=== PATIENT | female | born 1980 | race Caucasian/White ===

== ENCOUNTER → 2019-11-15 | Outpatient (CLI) | payer BC ==
[2019-11-15 11:17] LABS: BASO % 0.2 % (0.0-1.0); EOS # 0.1 10*3/uL (0.0-0.4); EOS % 0.9 % (1.0-4.0); HEMATOCRIT 39.4 % (37.0-47.0); LYMPH # 3.3 10*3/uL (1.3-4.4); LYMPH % 20.7 % (27.0-41.0); MEAN CELL VOLUME 96.3 fl (81.0-99.0); MEAN CORPUSCULAR HGB 32.8 pg (27.0-31.0); MONO # 1.2 10*3/uL (0.1-1.0); MONO % 7.8 % (3.0-9.0); NEUT % 69.8 % (47.0-73.0); PLATELET COUNT AUTOMATED 191 10*3/uL (130-400); RED BLOOD COUNT 4.09 10*6/uL (4.10-5.10); RED CELL DISTRI WIDTH 17.1 % (0-14.5); WHITE BLOOD COUNT 15.8 10*3/uL (4.8-10.8)
[2019-11-15 11:29] LABS: BILIRUBIN NEGATIVE (NEGATIVE); BLOOD NEGATIVE (NEGATIVE); CLARITY SL CLOUDY (CLEAR); COLOR YELLOW (YELLOW); GLUCOSE NEGATIVE (NEGATIVE); KETONE NEGATIVE (NEGATIVE); LEUKO ESTERASE NEGATIVE (NEGATIVE); MUCOUS TRACE; NITRITE NEGATIVE (NEGATIVE); PH 6.5 (5.0-9.0); RBC 0-2 rbc/hpf (0-2); SPECIFIC GRAVITY 1.015 (1.005-1.030); UROBILINOGEN 0.2 E.U./dl (0.2-1.0); WBC 0-2 wbc/hpf (0-5)
[2019-11-15 11:48] LABS: ALBUMIN 3.5 gm/dl (3.1-4.5); BUN 11 mg/dl (7-24); CHLORIDE 105 mmol/L (98-107); POTASSIUM 3.6 mmol/L (3.5-5.1); SGOT/AST 70 IU/L (3-35); SGPT/ALT 97 U/L (12-78); SODIUM 137 mmol/L (136-145); TOTAL PROTEIN 7.5 gm/dL (6.4-8.2); TRIGLYCERIDES 204 mg/dl (<150); VLDL CHOLESTEROL 41 mg/dL (6-40)
[2019-11-15 11:55] LABS: ALKALINE PHOSPHATASE 83 U/L (45-117); CHOLESTEROL 260 mg/dL (<200); CREATININE 0.88 mg/dL (0.55-1.02); HDL CHOLESTEROL 68 mg/dl (40-60); LDL CHOLESTEROL 151 mg/dL (9-159)
== END | disposition home or self-care (01) ==
LOC: LAB 10:36
PROVIDERS: Family Medicine
DX: I10 Essential (primary) hypertension (principal); F10.10 Alcohol abuse, uncomplicated

== ENCOUNTER 2020-03-11 10:53 | Emergency (ER) | payer BC ==
[~2020-03-11] VITALS: Ht 162.6 cm; Wt 77.1 kg
[2020-03-11 11:39] LABS: BASO % 0.4 % (0.0-1.0); EOS # 0.1 10*3/uL (0.0-0.4); EOS % 1.3 % (1.0-4.0); HEMATOCRIT 38.6 % (37.0-47.0); LYMPH # 1.1 10*3/uL (1.3-4.4); MEAN CELL VOLUME 91.9 fl (81.0-99.0); MEAN CORPUSCULAR HGB 29.3 pg (27.0-31.0); MEAN CORPUSCULAR HGB CONC 31.9 g/dl (33.0-37.0); MEAN PLATELET VOLUME 10.3 fl (9.6-12.3); MONO # 0.4 10*3/uL (0.1-1.0); MONO % 7.6 % (3.0-9.0); NEUT # 3.8 10*3/uL (2.3-7.9); NEUT % 70.3 % (47.0-73.0); PLATELET COUNT AUTOMATED 216 10*3/uL (130-400); WHITE BLOOD COUNT 5.4 10*3/uL (4.8-10.8)
[2020-03-11 11:55] LABS: ALBUMIN 3.4 gm/dl (3.1-4.5); ALKALINE PHOSPHATASE 113 U/L (45-117); BUN 5 mg/dl (7-24); CHLORIDE 107 mmol/L (98-107); CREATININE 0.99 mg/dL (0.55-1.02); POTASSIUM 3.3 mmol/L (3.5-5.1); SGOT/AST 44 IU/L (3-35); SGPT/ALT 32 U/L (12-78); SODIUM 141 mmol/L (136-145); TOTAL PROTEIN 7.4 gm/dL (6.4-8.2)
[2020-03-11 13:38] LABS: BILIRUBIN Negative (Negative); BLOOD Negative (Negative); CLARITY Clear (Clear); COLOR Yellow (Yellow); GLUCOSE Negative (Negative); KETONE Negative (Negative); LEUKO ESTERASE 1+ (Negative); NITRITE Negative (Negative); PH 6.5 (4.5-8.0); SPECIFIC GRAVITY 1.025 (1.001-1.030)
[2020-03-11 13:46] LABS: MUCOUS TRACE
[2020-03-11] MEDS ORDERED: SEPTDS PO (14:41)
[2020-03-12] MEDS ORDERED: AMLODIPINE BESY10 MG PO (16:51)
== END 2020-03-11 14:45 | disposition home or self-care (01) ==
LOC: ED 10:53
PROVIDERS: Emergency Medicine
DX: N39.0 Urinary tract infection, site not specified (principal); R20.2 Paresthesia of skin; R20.0 Anesthesia of skin

== ENCOUNTER 2020-03-12 10:37 | Observation (INO) | payer BC ==
[~2020-03-12] VITALS: Ht 162.5 cm; Wt 73.7 kg
[~2020-03-12 10:37] MED LIST: SEPTDS PO
[2020-03-12 10:44] VITALS: BP 184/76
[2020-03-12 10:56] LABS: BASO % 0.3 % (0.0-1.0); EOS # 0.1 10*3/uL (0.0-0.4); EOS % 1.9 % (1.0-4.0); HEMATOCRIT 39.8 % (37.0-47.0); LYMPH # 1.5 10*3/uL (1.3-4.4); LYMPH % 23.1 % (27.0-41.0); MEAN CELL VOLUME 89.8 fl (81.0-99.0); MEAN CORPUSCULAR HGB 28.9 pg (27.0-31.0); MEAN CORPUSCULAR HGB CONC 32.2 g/dl (33.0-37.0); MONO # 0.5 10*3/uL (0.1-1.0); MONO % 8.4 % (3.0-9.0); NEUT # 4.3 10*3/uL (2.3-7.9); PLATELET COUNT AUTOMATED 240 10*3/uL (130-400); RED BLOOD COUNT 4.43 10*6/uL (4.10-5.10); RED CELL DISTRI WIDTH 15.8 % (0-14.5); WHITE BLOOD COUNT 6.5 10*3/uL (4.8-10.8)
[2020-03-12 11:08] LABS: ACT PARTIAL THROMBO TIME 25.7 SECONDS (20.0-32.1)
[2020-03-12 11:11] LABS: ALBUMIN 3.6 gm/dl (3.1-4.5); ALKALINE PHOSPHATASE 115 U/L (45-117); BUN 4 mg/dl (7-24); CHLORIDE 104 mmol/L (98-107); CREATININE 1.02 mg/dL (0.55-1.02); POTASSIUM 3.5 mmol/L (3.5-5.1); SGOT/AST 37 IU/L (3-35); SGPT/ALT 32 U/L (12-78); SODIUM 139 mmol/L (136-145); TOTAL PROTEIN 8.1 gm/dL (6.4-8.2)
[2020-03-12 11:12] LABS: ETHYL ALCOHOL < 3.0 mg/dl (<3)
--- NOTE | 2020-03-12 11:20 | NUR ---
THE PATIENT WAS ADVISED THAT A URINE SAMPLE IS NEEDED. VERBAL UNDERSTANDING NOTED
--- NOTE | 2020-03-12 11:47 | NUR ---
THE PATIENT TIRED BUT WAS UNABLE TO PROVIDE A URINE SAMPLE
[2020-03-12 12:00] VITALS: BP 181/96
[2020-03-12 13:52] LABS: URINE AMPHETAMINES < 1000 (1000ng/ml); URINE BARBITURATES < 200 (200ng/ml); URINE BENZODIAZEPINES < 200 (200ng/ml); URINE CANNABINOIDS (THC) < 50 (50ng/ml); URINE COCAINE < 300 (300ng/ml); URINE METHADONE < 300 (300ng/ml); URINE OPIATES < 300 (300ng/ml)
[2020-03-12 13:54] LABS: URINE PHENCYCLIDINE < 25 (25ng/ml)
[2020-03-12 14:21] VITALS: BP 200/105
[2020-03-12 15:00] VITALS: BP 191/108
--- NOTE | 2020-03-12 15:00 | NUR ---
B/P 191/108/ 10MG HYDRALIZE GIVEN IV.
[2020-03-12] MEDS ORDERED: AMLODIPINE BESY10 MG PO (16:51)
--- NOTE | 2020-03-12 17:08 | NUR ---
[facility] , under the services of REJI Lopez DO with a diagnosis of HTN. Chief complaint is DIZZINESS. Patient arrived via bed from NH. Monitor applied. Initial assessment completed. Vital signs taken and recorded. REJI LOPEZ DO notified of admission to the unit. Orders received. See assessment for past medical history, medications and allergies. Patient and/or family oriented to unit. [facility]. Clothing/patient valuable form completed. ILDA WATT
[2020-03-12 20:00] VITALS: BP 124/88; BP 181/96
--- NOTE | 2020-03-12 20:16 | NUR ---
PATIENT MEDICATED WITH ZOFRAN, C/O NAUSEA, PATIENT SATTES SHE HAS NOT HAD ANYTHING TO EAT SINCE AM AND BELIEVES NAUSEA IS FROM THAT. BOX LUNCH AND ICE CREAM GIVEN. WILL MONITOR
[2020-03-13] VITALS: BP 134/88
[2020-03-13 06:25] LABS: BASO % 0.6 % (0.0-1.0); EOS # 0.3 10*3/uL (0.0-0.4); EOS % 3.8 % (1.0-4.0); LYMPH # 2.7 10*3/uL (1.3-4.4); LYMPH % 38.2 % (27.0-41.0); MEAN CELL VOLUME 92.3 fl (81.0-99.0); MEAN CORPUSCULAR HGB 28.8 pg (27.0-31.0); MEAN CORPUSCULAR HGB CONC 31.2 g/dl (33.0-37.0); MEAN PLATELET VOLUME 10.8 fl (9.6-12.3); MONO # 0.8 10*3/uL (0.1-1.0); MONO % 10.7 % (3.0-9.0); NEUT # 3.3 10*3/uL (2.3-7.9); NEUT % 46.6 % (47.0-73.0); PLATELET COUNT AUTOMATED 235 10*3/uL (130-400); RED BLOOD COUNT 4.44 10*6/uL (4.10-5.10); RED CELL DISTRI WIDTH 16.2 % (0-14.5)
[2020-03-13 06:53] LABS: ALBUMIN 3.5 gm/dl (3.1-4.5); ALKALINE PHOSPHATASE 102 U/L (45-117); BUN 9 mg/dl (7-24); CHLORIDE 103 mmol/L (98-107); CREATININE 0.99 mg/dL (0.55-1.02); POTASSIUM 3.4 mmol/L (3.5-5.1); SGOT/AST 66 IU/L (3-35); SGPT/ALT 42 U/L (12-78); SODIUM 141 mmol/L (136-145); TOTAL PROTEIN 7.6 gm/dL (6.4-8.2)
[2020-03-13 08:00] VITALS: BP 130/88
--- NOTE | 2020-03-13 09:00 | NUR ---
Ammunition Specialist in to talk to patient. Patient states lives at home with family. There are no steps in the home. Physician: [facility] [place] [facility] none Patient's level of ADLs: INDEPENDENT Patient has working utilities: all working DME: none Follow-up physician's appointment after d/c: will be made by hospsitalist nurse director upon discharge Does patient want to access PORTAL?: no Discharge plan discussed with patient, she states she lives at home with her family, she is independent in adls and ambulation, she stated she doesn't drive due to anxiety but her drives them wherever they need to go. she states she will return home when discharged and denies any home needs, case mangement will follow. CHARLIE COKER
[2020-03-13 16:00] VITALS: BP 137/54
--- NOTE | 2020-03-13 19:27 | NUR ---
PATIENT MEDICATED WITH TYLENOL FOR C/O HEADACHE. WILL MONITOR
[2020-03-13 20:00] VITALS: BP 141/64
[2020-03-13 23:11] VITALS: BP 135/76
[2020-03-14 07:04] LABS: ALBUMIN 3.5 gm/dl (3.1-4.5); ALKALINE PHOSPHATASE 95 U/L (45-117); BUN 8 mg/dl (7-24); CHLORIDE 105 mmol/L (98-107); CREATININE 0.94 mg/dL (0.55-1.02); SGOT/AST 23 IU/L (3-35); SGPT/ALT 36 U/L (12-78); SODIUM 140 mmol/L (136-145); TOTAL PROTEIN 7.9 gm/dL (6.4-8.2)
[2020-03-14 07:30] LABS: BASO % 0.1 % (0.0-1.0); HEMATOCRIT 41.6 % (37.0-47.0); LYMPH # 1.5 10*3/uL (1.3-4.4); LYMPH % 10.3 % (27.0-41.0); MEAN CELL VOLUME 92.2 fl (81.0-99.0); MEAN CORPUSCULAR HGB 29.3 pg (27.0-31.0); MEAN CORPUSCULAR HGB CONC 31.7 g/dl (33.0-37.0); MONO # 0.9 10*3/uL (0.1-1.0); MONO % 6.4 % (3.0-9.0); NEUT # 11.7 10*3/uL (2.3-7.9); NEUT % 82.8 % (47.0-73.0); PLATELET COUNT AUTOMATED 254 10*3/uL (130-400); RED BLOOD COUNT 4.51 10*6/uL (4.10-5.10); RED CELL DISTRI WIDTH 16.3 % (0-14.5); WHITE BLOOD COUNT 14.1 10*3/uL (4.8-10.8)
[2020-03-14 08:00] VITALS: BP 151/90
[2020-03-14] MEDS ORDERED: MECLIZINE HCL25 M2 PO (10:39)
[2020-03-14] MEDS ORDERED: PREDNISONE10 MG PO (10:39)
[2020-03-14] MEDS ORDERED: ATARAX,VISTARIL50 MG PO (10:39)
[2020-03-14] MEDS ORDERED: NICODERM CQ1 EAC2 TD (10:39)
[2020-03-14] MEDS ORDERED: LISINOPRIL10 M1 PO (10:39)
[2020-03-14] MEDS ORDERED: SIMVASTATIN80 MG PO (10:39)
[2020-03-14] MEDS ORDERED: ASPIRIN CHEWABL81 MG PO (10:39)
[2020-03-14 12:00] VITALS: BP 151/77
--- NOTE | 2020-03-14 13:03 | NUR ---
Discharge instructions reviewed with patient/family. Patient receptive and verbalizes understanding. Follow-up care arranged. Written instructions given to patient/family. GOOD LIU
== END 2020-03-14 13:03 | disposition home or self-care (01) ==
LOC: ED 10:37 → EDHOLD 14:38 → 4E 15:26
PROVIDERS: Emergency Medicine; Student in an Organized Health Care Education/Training Program; ADMIT Student in an Organized Health Care Education/Training Program; ATTEND Student in an Organized Health Care Education/Training Program
DX: I16.0 Hypertensive urgency (principal); R26.81 Unsteadiness on feet; F10.239 Alcohol dependence with withdrawal, unspecified; R42 Dizziness and giddiness; R11.10 Vomiting, unspecified; D72.810 Lymphocytopenia; R51.9 Headache, unspecified; F41.9 Anxiety disorder, unspecified; J44.9 Chronic obstructive pulmonary disease, unspecified; R74.01 Elevation of levels of liver transaminase levels; F17.210 Nicotine dependence, cigarettes, uncomplicated

== ENCOUNTER 2020-08-23 08:05 | Observation (INO) | payer BC ==
[~2020-08-23] VITALS: Ht 162.5 cm; Wt 90.7 kg
[~2020-08-23 08:05] MED LIST changes: +AMLODIPINE BESY10 MG PO; +ASPIRIN CHEWABL81 MG PO; +ATARAX,VISTARIL50 MG PO; +LISINOPRIL10 M1 PO; +MECLIZINE HCL25 M2 PO; +NICODERM CQ1 EAC2 TD; +PREDNISONE10 MG PO; +SIMVASTATIN80 MG PO
[2020-08-23 08:27] LABS: BASO # 0.1 10*3/uL (0.0-0.1); BASO % 0.7 % (0.0-1.0); EOS # 0.3 10*3/uL (0.0-0.4); EOS % 3.8 % (1.0-4.0); HEMATOCRIT 35.9 % (37.0-47.0); LYMPH # 2.3 10*3/uL (1.3-4.4); MEAN CELL VOLUME 88.4 fl (81.0-99.0); MEAN CORPUSCULAR HGB 27.1 pg (27.0-31.0); MEAN CORPUSCULAR HGB CONC 30.6 g/dl (33.0-37.0); MONO # 0.8 10*3/uL (0.1-1.0); MONO % 9.3 % (3.0-9.0); NEUT # 4.7 10*3/uL (2.3-7.9); PLATELET COUNT AUTOMATED 246 10*3/uL (130-400); RED BLOOD COUNT 4.06 10*6/uL (4.10-5.10); RED CELL DISTRI WIDTH 16.1 % (0-14.5); WHITE BLOOD COUNT 8.2 10*3/uL (4.8-10.8)
[2020-08-23 08:38] LABS: ACT PARTIAL THROMBO TIME 26.7 SECONDS (20.0-32.1)
[2020-08-23 08:42] LABS: ALBUMIN 3.3 gm/dl (3.1-4.5); ALKALINE PHOSPHATASE 135 U/L (45-117); BUN 11 mg/dl (7-24); CHLORIDE 110 mmol/L (98-107); CREATININE 0.97 mg/dL (0.55-1.02); POTASSIUM 3.9 mmol/L (3.5-5.1); SGOT/AST 15 IU/L (3-35); SGPT/ALT 33 U/L (12-78); SODIUM 138 mmol/L (136-145); TOTAL PROTEIN 7.3 gm/dL (6.4-8.2)
[2020-08-23 09:04] VITALS: BP 139/75
[2020-08-23 09:19] LABS: TROPONIN I < 0.015 ng/ml (<0.045)
[2020-08-23 09:50] VITALS: BP 149/69
[2020-08-23 12:19] VITALS: BP 155/87
[2020-08-23 12:45] LABS: BILIRUBIN Negative (Negative); BLOOD Trace-Intact (Negative); CLARITY Clear (Clear); COLOR Yellow (Yellow); GLUCOSE Negative (Negative); KETONE Negative (Negative); LEUKO ESTERASE Negative (Negative); NITRITE Negative (Negative); PH 6.5 (4.5-8.0); SPECIFIC GRAVITY 1.015 (1.001-1.030)
[2020-08-23 13:06] LABS: BACTERIA 1+; EPITHELIAL CELLS 16-20; MUCOUS TRACE; RBC 0-2 rbc/hpf (0-2); WBC 0-2 wbc/hpf (0-5)
[2020-08-23 14:18] VITALS: BP 177/99
[2020-08-23] MEDS ORDERED: CLEOCIN HCL150 MG PO (16:08)
== END 2020-08-23 16:21 | disposition home or self-care (01) ==
LOC: ED 08:05 → EDHOLD 09:47
PROVIDERS: Emergency Medicine; Social Worker Clinical; ADMIT Student in an Organized Health Care Education/Training Program; ATTEND Student in an Organized Health Care Education/Training Program
DX: R07.89 Other chest pain (principal); F17.200 Nicotine dependence, unspecified, uncomplicated; R00.2 Palpitations; R06.01 Orthopnea; F41.9 Anxiety disorder, unspecified; M54.2 Cervicalgia; R20.2 Paresthesia of skin; J44.9 Chronic obstructive pulmonary disease, unspecified; I10 Essential (primary) hypertension; R42 Dizziness and giddiness; F41.0 Panic disorder [episodic paroxysmal anxiety]; D64.9 Anemia, unspecified; E87.8 Other disorders of electrolyte and fluid balance, not elsewhere classified; R73.9 Hyperglycemia, unspecified; Z86.73 Personal history of transient ischemic attack (TIA), and cerebral infarction without residual deficits; Z98.890 Other specified postprocedural states